=== PATIENT | female | born 1960 | race Caucasian/White ===

== ENCOUNTER 2020-06-18 10:30 | Outpatient (CLI) | payer BC, SELFPAY ==
--- NOTE | 2020-06-18 10:34 | MM_ITS ---
WS: [id number] BILATERAL SCREENING DIGITAL MAMMOGRAM WITH CAD HISTORY: SCREENING COMPARISON: 05/18/2019 and 04/18/2018 Bilateral CC and MLO views submitted. Computer aided detection analyzed. Breast composition: The breasts are almost entirely fatty. No suspicious masses, microcalcifications or architectural distortion. Stable 5 mm nodules in the lateral RIGHT breast over several years. Thes e are probably lymph nodes. MM/[place] [id number] IMPRESSION: BI-RADS: 2-Benign FOLLOW UP: 1 Year Follow-up
== END 2020-06-18 10:31 | disposition home or self-care (01) ==
LOC: RADSHAW 10:32
PROVIDERS: PCP Family Medicine; Visit Provider Family Medicine
DX: Z12.31 Encounter for screening mammogram for malignant neoplasm of breast (principal)
CPT/HCPCS: 77067

== ENCOUNTER 2021-07-22 07:32 | Outpatient (CLI) | payer BC, SELFPAY ==
--- NOTE | 2021-07-22 07:46 | MR_ITS ---
WS: [email or web address] MRI RIGHT KNEE HISTORY: DERANGEMENT bilateral KNEES COMPARISON: 04/28/2001 radiographs. Anterior cruciate ligament: Intact. Posterior cruciate ligament: Intact. Medial collateral ligament: Intact. Posterior lateral corner structures: Intact. Medial menisci: Intact. Normal signal, size and shape. Lateral meniscus: Intact. Normal signal, size and shape. Extensor mechanism: Distal quadriceps tendon and patellar tendons are intact. Fluid and soft tissue: No significant joint effusion. Very small Milian's cyst extends over length of 2.3 cm. Osseous and articular structures: Patellofemoral compartment: Small focal defect in the cartilage of the medial patellar facet. There i s also marrow edema in the inferior patella measuring 12 x 9 mm. No fracture identified. This may be degenerative. Medial compartment: No significant narrowing of the medial compartment. Very minimal thinning and fis suring of the cartilage. No underlying marrow edema. Lateral compartment: No significant narrowing of the lateral compartment. There is small amount of in creased signal in the tibial plateau cartilage but no full-thickness defect. No underlying marrow tati ma. MR/MR knee RT wo con* [id number] IMPRESSION: 1. No meniscal tear. 2. Small amount of subchondral edema in the inferior half of the patella. 3. Small superficial area of chondromalacia in the medial patellar facet. 4. Very small superficial injury to the cartilage lateral tibial plateau. 5. Small Milian's cyst.
--- NOTE | 2021-07-22 07:46 | MR_ITS ---
WS: [email or web address] MRI LEFT KNEE HISTORY: Internal derangement. COMPARISON: None available. Anterior cruciate ligament: Intact. Posterior cruciate ligament: Intact. Medial collateral ligament: Intact. Posterior lateral corner structures: Intact. Medial menisci: Intact. Normal signal, size and shape. Lateral meniscus: Intact. Normal signal, size and shape. Extensor mechanism: Distal quadriceps tendon and patellar tendons are intact. Fluid and soft tissue: Very small joint effusion. Small Milian's cyst. Osseous and articular structures: Patellofemoral compartment: Focal areas of osteonecrosis along the posterior surface of the patella. No loose body identified. No fracture. Chondromalacia at the patellar eminence and over the lateral p atellar facet. Medial compartment: Normal. Lateral compartment: Very minimal fissuring involving the weightbearing surface of the femoral condyl e and tibial plateau. No underlying marrow edema. There is a small amount of marrow edema at the base of the lateral tibial spine. MR/MR knee LT wo con* [id number] IMPRESSION: 1. Small Milian's cyst. 2. Focal areas of osteonecrosis along the posterior patellar surface. 3. Focal areas of chondromalacia at the patellar eminence and over the lateral patellar facet. 4. Very minimal fissuring of the cartilage along the weightbearing surface of the lateral femoral condyle and tibial plateau.
--- NOTE | 2021-07-22 07:48 | MR_ITS ---
WS: [id number] MRI CERVICAL SPINE NONCONTRAST HISTORY: CERVICAL STENOSIS COMPARISON: None available. Technique: Multiplanar, multisequence noncontrast imaging of the cervical spine. Mild straightening of the normal cervical lordosis. There is also mild curvature of the cervical spin e. On the clerk typist localizer scoliosis extends into the thoracic spine. There is significant RIGHT devia tion of the thoracic spine. Benign hemangiomas in the C3 and C6 vertebral bodies. Mild disc space narrowing throughout but most significant at C5-6. No fracture. No marrow edema. Sign al within the cord is normal. C2-C3: Normal. C3-C4: Normal. C4-C5: Mild annular disc bulging and osteophytic ridging. Small disc osteophytes extend into the neur al foramina, LEFT greater than RIGHT. There is mild LEFT foraminal narrowing. Mild osteophyte encroac hment upon the ventral thecal sac but no significant stenosis. C5-C6: Mild osteophytic ridging without a focal disc protrusion. Mild foraminal narrowing. Slightly g reater foraminal narrowing on the LEFT due to an osteophyte. C6-C7: Mild osteophytic ridging slightly greater to the LEFT. No high-grade stenosis. Very shallow LE FT paracentral disc protrusion. C7-T1: Normal. Paraspinal soft tissue are normal. MR/MR cervical spin wo con* [id number] IMPRESSION: 1. Mild curvature cervical spine. 2. No high-grade central or foraminal stenosis. 3. Mild LEFT foraminal stenosis at C4-5 due to disc osteophyte disease. 4. Very shallow LEFT paracentral disc protrusion at C6-7. 5. Benign vertebral body hemangiomas at C3 and C6. 6. Very mild LEFT foraminal narrowing at C5-6 due to an osteophyte.
== END 2021-07-22 07:33 | disposition home or self-care (01) ==
LOC: RAD 07:33
PROVIDERS: PCP Family Medicine; Visit Provider Orthopaedic Surgery
DX: M48.02 Spinal stenosis, cervical region (principal); M25.78 Osteophyte, vertebrae; M50.223 Other cervical disc displacement at C6-C7 level; D18.09 Hemangioma of other sites
CPT/HCPCS: 72141; 73721

== ENCOUNTER → 2021-10-20 11:25 | Outpatient (BNVA) | payer BC, SELFPAY | PROVIDERS: PCP Clinical Nurse Specialist Adult Health; Visit Provider Clinical Nurse Specialist Adult Health | DX: N30.00 Acute cystitis without hematuria (principal) | CPT/HCPCS: 81000; 87086 ==

== ENCOUNTER 2021-12-29 10:39 | Outpatient (CLI) | payer BC, SELFPAY ==
[2021-12-29 11:39] LABS: Blood Urea Nitrogen 15 mg/dL (8-23); Glomerular Filtration Rate 84.8 mL/min (90-130)
== END 2021-12-29 10:40 | disposition home or self-care (01) ==
LOC: LAB 10:41
PROVIDERS: PCP Clinical Nurse Specialist Adult Health; Visit Provider Surgery
DX: D18.09 Hemangioma of other sites (principal); M54.2 Cervicalgia
CPT/HCPCS: 36415; 82565; 84520

== ENCOUNTER 2021-12-31 06:50 | Outpatient (CLI) | payer BC, SELFPAY ==
--- NOTE | 2021-12-31 07:26 | MR_ITS ---
WS: [email or web address] MRI CERVICAL SPINE NONCONTRAST AND CONTRAST TECHNIQUE: Sagittal T1, T2 and STIR imaging. Axial T2, gradient, and fiesta imaging. Fat saturation p ost gadolinium imaging was obtained. CLINICAL INFORMATION: SPINAL HEMANGIOMA, CERVICALGIA COMPARISON: MRI July 22, 2021 FINDINGS: Mild cervical curve. Mild disc bulging C4-C6. No high-grade central canal stenosis. Cord signal is no rmal. Incidental benign hemangiomas C3 and C6 vertebral bodies unchanged. C2-C3: Normal. C3-C4: Mild LEFT facet arthropathy. Spinal canal and foramen are patent. C4-C5: Disc osteophytic ridging. Mild central canal stenosis. Mild LEFT greater than RIGHT bony jimmy inal narrowing. Moderate facet arthropathy. C5-C6: Disc osteophyte complex with endplate ridging. Mild central canal stenosis. Moderate LEFT and mild RIGHT bony foraminal narrowing. Moderate facet arthropathy. C6-C7: Disc osteophyte complex with endplate ridging. Mild bilateral bony foraminal narrowing RIGHT g reater than LEFT. Spinal canal is patent. C7-T1: Normal. Visualized upper thoracic canal is normal. No abnormal gadolinium enhancement. MR/MR cervical spine wo/w [id number] IMPRESSION: 1. Incidental benign hemangioma C3 and C6 vertebral bodies are unchanged. 2. Mild central canal stenosis C4-C5 and C5-C6 due to disc osteophyte complexe s unchanged. 3. Mild to moderate bony foraminal narrowing worse at LEFT C4-C5, LEFT C5-C6, and RIGHT C6-C7 unchanged. 4. Moderate facet arthropathy C4-C5 and C5-C6.
== END 2021-12-31 06:51 | disposition home or self-care (01) ==
PROVIDERS: PCP Clinical Nurse Specialist Adult Health; Visit Provider Surgery
DX: D18.09 Hemangioma of other sites (principal); M48.02 Spinal stenosis, cervical region; M47.812 Spondylosis without myelopathy or radiculopathy, cervical region
CPT/HCPCS: 72156

== ENCOUNTER → 2022-01-05 08:16 | Outpatient (BNVA) | payer BC, SELFPAY | PROVIDERS: PCP Clinical Nurse Specialist Adult Health; Visit Provider Clinical Nurse Specialist Adult Health | DX: E03.9 Hypothyroidism, unspecified (principal) | CPT/HCPCS: 84443 ==

== ENCOUNTER → 2022-03-29 08:57 | Outpatient (BNVA) | payer BC, SELFPAY | PROVIDERS: PCP Clinical Nurse Specialist Adult Health; Visit Provider Clinical Nurse Specialist Adult Health | DX: E03.9 Hypothyroidism, unspecified (principal) | CPT/HCPCS: 84443 ==

== ENCOUNTER → 2022-06-28 08:08 | Outpatient (BNVA) | payer BC, SELFPAY | PROVIDERS: PCP Clinical Nurse Specialist Adult Health; Visit Provider Clinical Nurse Specialist Adult Health | DX: E03.9 Hypothyroidism, unspecified (principal) | CPT/HCPCS: 84443 ==

== ENCOUNTER → 2023-04-13 10:23 | Outpatient (BNVA) | payer BC, SELFPAY | PROVIDERS: PCP Clinical Nurse Specialist Adult Health; Visit Provider Nurse Practitioner Family | DX: H66.90 Otitis media, unspecified, unspecified ear (principal); Z85.828 Personal history of other malignant neoplasm of skin; E10.9 Type 1 diabetes mellitus without complications | CPT/HCPCS: 80053; 85025; 86705; 86706; 86709; 86803; 87340 ==

== ENCOUNTER → 2023-04-25 13:12 | Outpatient (BNVA) | payer BC, SELFPAY | PROVIDERS: PCP Clinical Nurse Specialist Adult Health; Visit Provider Clinical Nurse Specialist Adult Health | DX: L40.9 Psoriasis, unspecified (principal); D89.89 Other specified disorders involving the immune mechanism, not elsewhere classified | CPT/HCPCS: 85651; 86160; 86162; 86235; 86255; 86376; 86431 ==

== ENCOUNTER 2023-09-01 13:32 | Outpatient (CLI) | payer BC, SELFPAY ==
[2023-09-03 13:29] LABS: Quantiferon Mitogen 7.32 IU/mL; Quantiferon Nil 0.24 IU/mL; Quantiferon Plus TB1 <0.00 IU/mL; Quantiferon Plus TB2 <0.00 IU/mL; Quantiferon TB Gold NEGATIVE (NEGATIVE)
== END 2023-09-01 13:33 | disposition home or self-care (01) ==
LOC: LAB 13:33
PROVIDERS: PCP Clinical Nurse Specialist Adult Health; Visit Provider Nurse Practitioner Family
DX: L40.0 Psoriasis vulgaris (principal); L29.8 Other pruritus; Z79.899 Other long term (current) drug therapy
CPT/HCPCS: 86480

== ENCOUNTER → 2024-01-02 08:57 | Outpatient (BNVA) | payer BC, SELFPAY | PROVIDERS: PCP Clinical Nurse Specialist Adult Health; Visit Provider Nurse Practitioner Women's Health | DX: Z12.4 Encounter for screening for malignant neoplasm of cervix | CPT/HCPCS: 87624 ==

== ENCOUNTER 2024-01-10 10:10 | Outpatient (CLI) | payer BC, SELFPAY ==
--- NOTE | 2024-01-10 10:30 | MM_ITS ---
WS: [email or web address] BILATERAL 3D TOMOSYNTHESIS DIGITAL SCREENING MAMMOGRAM WITH CAD CLINICAL INFORMATION: Z12.31 - Encounter for screening mammogram for malignant ... HISTORY: Screening mammogram. No current complaints. COMPARISON: 2020 TECHNIQUE: Bilateral CC and MLO views. FINDINGS: Fatty-replaced breasts bilaterally. No suspicious focal mass, asymmetry, calcifications, or sfdc architect ural distortion. No evidence of malignancy. Stable 5 mm nodules in the lateral RIGHT breast. Incident al punctate calcification LEFT breast. MM/[place] [id number] IMPRESSION: BI-RADS: 2-Benign FOLLOW UP: 1 Year Follow-up Recommend return to annual screening mammography.
== END 2024-01-10 10:11 | disposition home or self-care (01) ==
LOC: RAD 10:12
PROVIDERS: PCP Clinical Nurse Specialist Adult Health; Visit Provider Nurse Practitioner Women's Health
DX: Z12.31 Encounter for screening mammogram for malignant neoplasm of breast (principal); R92.313 Mammographic fatty tissue density, bilateral breasts; R92.1 Mammographic calcification found on diagnostic imaging of breast
CPT/HCPCS: 77063; 77067; 87624

== ENCOUNTER → 2024-01-31 11:06 | Outpatient (BNVA) | payer BC, SELFPAY | PROVIDERS: PCP Clinical Nurse Specialist Adult Health; Visit Provider Nurse Practitioner | DX: R39.9 Unspecified symptoms and signs involving the genitourinary system (principal) | CPT/HCPCS: 81000 ==

== ENCOUNTER → 2024-04-17 10:48 | Outpatient (BNVA) | payer MEDICARE, SELFPAY | PROVIDERS: PCP Clinical Nurse Specialist Adult Health; Visit Provider Nurse Practitioner Family | DX: L40.0 Psoriasis vulgaris (principal); L29.89 Other pruritus; Z79.899 Other long term (current) drug therapy; L82.1 Other seborrheic keratosis; L57.8 Other skin changes due to chronic exposure to nonionizing radiation; L81.4 Other melanin hyperpigmentation; D22.5 Melanocytic nevi of trunk; L57.0 Actinic keratosis | CPT/HCPCS: 17000; 99214 ==

== ENCOUNTER → 2024-04-26 10:33 | Outpatient (BNVA) | payer MEDICARE, OTHER, SELFPAY | PROVIDERS: PCP Clinical Nurse Specialist Adult Health; Visit Provider Clinical Nurse Specialist Adult Health | DX: E03.9 Hypothyroidism, unspecified (principal) | CPT/HCPCS: 84443 ==

== ENCOUNTER → 2024-09-11 10:21 | Outpatient (BNVA) | payer MEDICARE, OTHER, SELFPAY | PROVIDERS: PCP Family Medicine; Visit Provider Nurse Practitioner Family | DX: L40.0 Psoriasis vulgaris (principal); L29.89 Other pruritus; Z79.899 Other long term (current) drug therapy; L82.1 Other seborrheic keratosis; L57.8 Other skin changes due to chronic exposure to nonionizing radiation; L81.4 Other melanin hyperpigmentation; D22.5 Melanocytic nevi of trunk; Z08 Encounter for follow-up examination after completed treatment for malignant neoplasm; Z85.828 Personal history of other malignant neoplasm of skin | CPT/HCPCS: 99214 ==

== ENCOUNTER 2024-09-19 14:14 | Outpatient (CLI) | payer MEDICARE, OTHER, SELFPAY ==
--- NOTE | 2024-09-19 14:30 | XR_ITS ---
WS: [email or web address] SCREENING DEXA SCAN [facility] CLINICAL INFORMATION: postmenopausal COMPARISON: 2019 FINDINGS: The L1-L4 bone mineral density measures 0.868 g/cm2. This corresponds to a T score score of -2.6 and Z score of -1.0. Left femoral neck bone mineral density measures 0.694 g/cm2. This corresponds to a T score of -2.5 and Z score of -1.2. Right femoral neck bone mineral density measures 0.720 g/cm2. This corresponds to a T score -2.3of and Z score of -1.0. Mean femoral neck bone mineral density measures 0.707 g/cm2. This corresponds to a T score of -2.4 and Z score of -1.1. XR/XR DEXA axial skeleton* [id number] IMPRESSION: Osteoporosis lumbar spine. Osteopenia femoral necks. Patient's FRAX calculated 10 year probability for major osteoporotic fracture i s 20.1% and osteoporotic hip fracture is 2.1%.
== END 2024-09-19 14:15 | disposition home or self-care (01) ==
LOC: RAD 14:15
PROVIDERS: PCP Family Medicine; Visit Provider Family Medicine
DX: Z78.0 Asymptomatic menopausal state (principal); M81.0 Age-related osteoporosis without current pathological fracture; M85.88 Other specified disorders of bone density and structure, other site
CPT/HCPCS: 77080

== ENCOUNTER → 2024-09-28 10:57 | Outpatient (BNVA) | payer MEDICARE, OTHER, SELFPAY | PROVIDERS: PCP Family Medicine; Visit Provider Family Medicine | DX: L40.9 Psoriasis, unspecified (principal); M81.8 Other osteoporosis without current pathological fracture; E34.9 Endocrine disorder, unspecified; M15.9 Polyosteoarthritis, unspecified | CPT/HCPCS: 82306 ==

== ENCOUNTER → 2024-11-08 10:58 | Outpatient (BNVA) | payer MEDICARE, OTHER, SELFPAY | PROVIDERS: PCP Family Medicine; Visit Provider Emergency Medicine | DX: R42 Dizziness and giddiness (principal) | CPT/HCPCS: 82962 ==

== ENCOUNTER → 2025-01-10 10:22 | Outpatient (BNVA) | payer MEDICARE, OTHER, SELFPAY | PROVIDERS: PCP Family Medicine; Visit Provider Nurse Practitioner Family | DX: L40.0 Psoriasis vulgaris (principal); L29.89 Other pruritus; Z79.899 Other long term (current) drug therapy; L82.1 Other seborrheic keratosis; L57.8 Other skin changes due to chronic exposure to nonionizing radiation; L81.4 Other melanin hyperpigmentation; D22.5 Melanocytic nevi of trunk; Z08 Encounter for follow-up examination after completed treatment for malignant neoplasm; Z85.828 Personal history of other malignant neoplasm of skin; L57.0 Actinic keratosis | CPT/HCPCS: 17000; 99214 ==

== ENCOUNTER 2025-01-14 08:46 | Outpatient (CLI) | payer MEDICARE, OTHER, SELFPAY ==
--- NOTE | 2025-01-14 08:52 | MM_ITS ---
WS: [email or web address] BILATERAL SCREENING DIGITAL TOMOSYNTHESIS MAMMOGRAM WITH CAD HISTORY: SCREENING COMPARISON: 01/10/2024, 06/18/2020 Bilateral CC and MLO views with tomosynthesis and synthetic mammography submitted. Computer aided detection analyzed. Breast composition: There are scattered areas of fibroglandular density. No suspicious masses, microcalcifications or architectural distortion. Benign intramammary lymph nodes RIGHT breast. No suspicious grouping of calcifications. No distortion. MM/MM scr tomosynthesis [id number] IMPRESSION: BI-RADS: 2 - Benign. FOLLOW UP: 1 Year Follow-up
== END 2025-01-14 08:47 | disposition home or self-care (01) ==
LOC: RAD 08:47
PROVIDERS: PCP Family Medicine; Visit Provider Nurse Practitioner Women's Health
DX: Z12.31 Encounter for screening mammogram for malignant neoplasm of breast (principal); R92.323 Mammographic fibroglandular density, bilateral breasts; D36.0 Benign neoplasm of lymph nodes
CPT/HCPCS: 77063; 77067

== ENCOUNTER → 2025-04-09 11:14 | Outpatient (BNVA) | payer MEDICARE, OTHER, SELFPAY | PROVIDERS: PCP Family Medicine; Visit Provider Family Medicine | DX: E03.9 Hypothyroidism, unspecified (principal); M81.8 Other osteoporosis without current pathological fracture; E34.9 Endocrine disorder, unspecified; M15.9 Polyosteoarthritis, unspecified | CPT/HCPCS: 80053; 80061; 82310; 83970; 84439; 84443; 85025 ==

== ENCOUNTER → 2025-04-29 10:45 | Outpatient (BNVA) | payer MEDICARE, OTHER, SELFPAY | PROVIDERS: PCP Family Medicine; Visit Provider Nurse Practitioner Family | DX: L57.0 Actinic keratosis (principal); L57.8 Other skin changes due to chronic exposure to nonionizing radiation; L81.4 Other melanin hyperpigmentation; D22.39 Melanocytic nevi of other parts of face | CPT/HCPCS: 99213 ==